=== PATIENT | male | born 1975 | race Caucasian/White ===

== ENCOUNTER → 2016-11-22 | Outpatient (CLI) | payer BC ==
--- NOTE | 2016-11-22 10:10 | CR ---
EXAMINATION: Left knee HISTORY: Pain COMPARISON: 09/07/2016 TECHNIQUE: 4 views FINDINGS: There is no acute osseous abnormality, dislocation, or fracture. There is mild joint space narrowing within the medial compartment and within the patellofemoral compartment. Osteophyte forma tion is noted. Trace suprapatellar joint fluid and moderate prepatellar soft tissue thickening. Bone mineralization is otherwise normal. IMPRESSION: Mild to moderate degenerative changes without acute osseous abnormalities.
== END ==
LOC: MW.CHORTHO 07:37
PROVIDERS: ATTEND Physician Assistant
DX: M25.562 Pain in left knee (principal)
CPT/HCPCS: 73564-26-LT; 73564-LT